=== PATIENT | female | born 1970 | race African-American/Black ===

== ENCOUNTER 2017-12-07 15:39 | Emergency (ER) | payer MEDICAID, OTHER ==
[~2017-12-07] VITALS: Ht 162.6 cm; Wt 102.0 kg
[~2017-12-07 15:39] MED LIST: OXYB5TAB11; [UNRECOGNIZED DRUG - CODE]
[2017-12-07] MEDS ORDERED: DICYCLOMINE 10 MG/5 ML ORAL SYR PO STA (19:00)
[2017-12-07] MEDS ORDERED: MAGNESIUM/ALUMINUM HYDROXIDE/SIMETHICONE 30ML UDC PO STA (19:00)
[2017-12-07] MEDS ORDERED: VISCOUS LIDOCAINE 2% 15 ML UDC PO STA (19:00)
[2017-12-07] MEDS ORDERED: ONDANSETRON 4MG ODT PO STA (19:00)
[2017-12-07 19:14] LABS: CLARITY URINE CLOUDY (CLEAR); COLOR URINE YELLOW (YELLOW); KETONES URINE NEGATIVE (NEGATIVE); LEUKOCYTE ESTERASE URINE NEGATIVE (NEGATIVE); NITRITE URINE NEGATIVE (NEGATIVE); OCCULT BLOOD URINE NEGATIVE (NEGATIVE); PH URINE 7.5 (4.5-8.0); PROTEIN URINE NEGATIVE (NEGATIVE); UROBILINOGEN URINE 0.2 E.U./dL (0.2-1.0)
[2017-12-07 19:18] LABS: BASOPHILS % 0.7 % (0.0-2.0); EOSINOPHILS % 2.3 % (0.0-5.0); HEMATOCRIT. 33.8 % (36.0-48.0); HEMOGLOBIN. 10.8 g/dL (12.0-16.0); LYMPHOCYTES % 34.5 % (20.0-50.0); MEAN CORPUSCULAR HEMOGLOBIN 22.9 pg (28.0-32.0); MEAN CORPUSCULAR VOLUME 71.5 fL (81.0-99.0); MEAN PLATELET VOLUME 7.9 fl (7.4-10.4); MONOCYTES % 9.9 % (2.0-8.0); NEUTROPHILS % 52.6 % (40.0-76.0); PLATELET 368 x1000/uL (130-400); RED BLOOD CELL COUNT 4.72 mill/uL (4.2-5.4); RED CELL DISTRIBUTION WIDTH 14.9 % (11.6-14.6)
[2017-12-07 19:21] LABS: INR 1.1; PARTIAL THROMBOPLASTIN TIME 25.2 sec (23.4-31.0); PROTHROMBIN TIME 11.4 sec (9.4-11.6)
[2017-12-07 19:23] LABS: CARBON DIOXIDE 27 mEq/L (21-32); CHLORIDE 105 mEq/L (98-107)
[2017-12-07 19:27] LABS: HCG SCREEN NEGATIVE
[2017-12-07 21:09] VITALS: BP 115/73
== END 2017-12-07 21:11 | disposition home or self-care (01) ==
LOC: ER 16:23
DX: N39.0 Urinary tract infection, site not specified (principal); R07.9 Chest pain, unspecified; D64.9 Anemia, unspecified; Z88.8 Allergy status to other drugs, medicaments and biological substances
CPT/HCPCS: 36415; 71045; 80053; 81001; 83690; 84703; 85025; 85610; 85730; 87086; 93005; 99285; Q0162

== ENCOUNTER 2019-09-11 03:39 | Emergency (ER) | payer MEDICAID ==
[~2019-09-11] VITALS: Ht 162.6 cm; Wt 100.0 kg
[2019-09-11] MEDS ORDERED: SODIUM CHLORIDE 0.9% 1,000 ML IV ONE (03:54)
[2019-09-11] MEDS ORDERED: KETOROLAC 30MG/ML VIAL IV STA (03:54)
[2019-09-11] MEDS ORDERED: METOCLOPRAMIDE HCL 10MG/2ML VIAL IV ONE (04:00)
[2019-09-11] MEDS ORDERED: DIPHENHYDRAMINE 50MG/ML VIAL IV ONE (04:00)
[2019-09-11 04:40] LABS: BASOPHILS % 0.5 % (0.0-2.0); EOSINOPHILS % 1.7 % (0.0-5.0); HEMATOCRIT. 37.9 % (36.0-48.0); HEMOGLOBIN. 12.1 g/dL (12.0-16.0); LYMPHOCYTES % 30.2 % (20.0-50.0); MEAN CORPUSCULAR HEMOGLOBIN 23.1 pg (28.0-32.0); MEAN CORPUSCULAR VOLUME 72.5 fL (81.0-99.0); MEAN PLATELET VOLUME 8.4 fl (7.4-10.4); MONOCYTES % 8.2 % (2.0-8.0); NEUTROPHILS % 59.4 % (40.0-76.0); PLATELET 356 x1000/uL (130-400); RED BLOOD CELL COUNT 5.23 mill/uL (4.2-5.4); RED CELL DISTRIBUTION WIDTH 15.4 % (11.6-14.6)
[2019-09-11 04:45] LABS: CHLORIDE 105 mEq/L (98-107)
[2019-09-11 06:48] VITALS: BP 0/65
== END 2019-09-11 06:50 | disposition home or self-care (01) ==
LOC: ER 03:39
DX: G43.909 Migraine, unspecified, not intractable, without status migrainosus (principal); R42 Dizziness and giddiness; Z88.3 Allergy status to other anti-infective agents
CPT/HCPCS: 36415; 70450; 80053; 81025; 85025; 96361; 96374; 96375; 99284; J1200; J1885; J2765; J7030; Z7610

== ENCOUNTER 2024-06-27 18:50 | Inpatient (IN) | payer MEDICAID, OTHER ==
[~2024-06-27] VITALS: Ht 162.6 cm; Wt 102.1 kg
[~2024-06-27 18:50] MED LIST changes: +OXYB-52; -OXYB5TAB11
[2024-06-27 19:02] VITALS: O2SAT 100
[2024-06-27 20:38] LABS: BASOPHILS % 0.8 % (0.0-2.0); DIFFERENTIAL COMMENT 0; EOSINOPHILS % 3.2 % (0.0-5.0); HEMATOCRIT. 37.6 % (36.0-48.0); HEMOGLOBIN. 11.8 g/dL (12.0-16.0); LYMPHOCYTES % 36.1 % (20.0-50.0); MEAN CORPUSCULAR HEMOGLOBIN 22.9 pg (28.0-32.0); MEAN CORPUSCULAR HGB CONC 31.5 g/dL (31.0-37.0); MEAN CORPUSCULAR VOLUME 72.6 fL (81.0-99.0); MEAN PLATELET VOLUME 8.3 fl (7.4-10.4); MONOCYTES % 9.5 % (2.0-8.0); NEUTROPHILS % 50.4 % (40.0-76.0); PLATELET 361 x1000/uL (130-400); RED BLOOD CELL COUNT 5.18 mill/uL (4.2-5.4); RED CELL DISTRIBUTION WIDTH 15.1 % (11.6-14.6); WHITE BLOOD COUNT 6.4 x1000/uL (4.5-11.0)
[2024-06-27 20:43] LABS: CHLORIDE 107 mEq/L (98-107); POTASSIUM 4.5 mEq/L (3.5-5.1); SODIUM 140 mEq/L (136-145)
[2024-06-27] MEDS: DIAZEPAM 2 MG TABLET PO ONE (20:43)
[2024-06-27] MEDS: DIPHENHYDRAMINE 50MG/ML VIAL IM ONE (20:43)
[2024-06-27 20:44] LABS: CALCIUM 9.1 mg/dL (8.7-10.4); CARBON DIOXIDE 29 mEq/L (21-32)
[2024-06-27 20:49] LABS: CREATININE 0.8 mg/dL (0.6-1.0); GLUCOSE 106 mg/dL (70-105); UREA NITROGEN BLOOD 9 mg/dL (9-23)
[2024-06-27 20:51] LABS: TROPONIN I HIGH SENSITIVITY < 4 ng/L (3.0-34)
[2024-06-28] MEDS: SODIUM CHLORIDE 0.9% 1,000 ML IV ONE (01:10)
[2024-06-28 08:00] VITALS: BP 127/65; PULSE 71; RESP 18; TEMP 36.55848; O2SAT 98
[2024-06-28 08:45] VITALS: BP 127/65; PULSE 71; RESP 18; TEMP 36.5848
[2024-06-28] MEDS: ASPIRIN 81MG TABLET PO SCH (09:00)
[2024-06-28] MEDS: MECLIZINE 25MG TABLET PO PRN (09:01)
[2024-06-28] MEDS: ONDANSETRON HCL 4MG/2ML INJ IV PRN (11:39)
[2024-06-28] MEDS: KETOROLAC 30MG/ML VIAL IV SCH (11:39)
[2024-06-28 12:00] VITALS: BP 123/87; PULSE 70; RESP 18; TEMP 37.05852; O2SAT 98
[2024-06-28] MEDS: DIAZEPAM 5 MG TABLET PO PRN (15:01)
[2024-06-28 16:00] VITALS: BP 127/74; PULSE 74; RESP 18; TEMP 36.55848; O2SAT 99
[2024-06-28 20:00] VITALS: BP 116/69; PULSE 70; RESP 16; TEMP 36.6696; O2SAT 99
[2024-06-28] MEDS: AMOXICILLIN/POTASSIUM CLAVULANATE 875/125MG TAB PO SCH (21:18)
[2024-06-29] VITALS (7 sets, daily range): BP systolic 105–144; BP diastolic 51–71; PULSE 66–75; RESP 16–20; TEMP 36.3918–36.89184; O2SAT 98–100
[2024-06-29] MEDS ORDERED: IBUP-2030 MT (17:50)
[2024-06-29] MEDS ORDERED: CIPHCO EACH EAR (17:50)
[2024-06-29] MEDS ORDERED: DIAZ5TAB4 PO (17:50)
== END 2024-06-29 18:35 | disposition home or self-care (01) | DRG 153 ==
LOC: ER 18:50 → 5WST 21:38 → EDBEDREQ 21:57 → EDBEDREQTM 21:57 → 7EST 06-28 08:20
PROVIDERS: ADMIT Internal Medicine; ATTEND Internal Medicine
DX: H66.92 Otitis media, unspecified, left ear (principal); D64.9 Anemia, unspecified; N32.81 Overactive bladder; Z88.3 Allergy status to other anti-infective agents; Z79.899 Other long term (current) drug therapy
CPT/HCPCS: 36415; 70486; 70551; 80048; 84484; 85025; 93005; 99285; J1200; J1885; J2405; J7030; J8597